=== PATIENT | female | born 1970 | race Asian ===

== ENCOUNTER → 2021-02-21 | Outpatient (CLI) | payer BC ==
[~2021-02-21] MED LIST: AMBEREN; NORCO 5-325 TA1 EACH PO; NORFLEX100 MG PO
--- NOTE | 2021-02-22 13:08 | PATH ---
[facility] [address] [address] PATHOLOGY RPT PROCEDURE Name: MANDA RODRIGUEZ Room #: REG [facility] M.R.#: [id number] Admission: 02/21/21 Date of : 72 Discharge: Report #: [id number] Path Case #: [id number] [facility] Accession Number: [id number] . 01 Material submitted: . breast - RIGHT BREAST MASS. Modifiers: right . 01 Clinical history: . RIGHT BREAST MASS - 10:00 5CM . 02 Diagnosis: Right breast mass at 10:00,ultrasound guided needle biopsies: -Breast with apocrine metaplasia, columnar cell hyperplasia,mild usual ductal hyperplasia mild duct ectasia , rare microcalcifications within ducts associated with fibrotic stroma. - Features favor fibrocystic changes. - Negative for atypia, in situ carcinoma or malignancy. . . This case has been co-reviewed with Dr. Ally Thornton who agrees with the above diagnosis on 02/22/2021. (AK/db; 02/22/2021) LBQ 02/22/2021 1217 Local . 02 Electronically signed: . Madelin Lacey MD, Pathologist NPI- [id number] . 01 Gross description: . The specimen is received in formalin, labeled "Manda Rodriguez, right breast 10:00 5 cm". Received are multiple needle cores of fibrofatty tissue measuring 3.8 x 2.7 x 0.8 cm in aggregate dimensions. The specimen is submitted entirely in cassettes A1 through A3. The cold ischemic time is 5 minutes. The total formalin fixation time is 10 hours and 35 minutes. ([facility]; 02/21/2021) QAC/QAC 02/21/2021 1519 Local . 02 Pathologist provided ICD-10: N60.41, N60.81 . 02 CPT . 566580 Specimen Comment: A courtesy copy of this report has been sent to [phone] Specimen Comment: [id number] [address] PATHOLOGY RPT PROCEDURE Name: MANDA RODRIGUEZ Room #: REG [facility] Jha#: [id number] Admission: 02/21/21 Date of : 72 Discharge: Report #: [id number] Path Case #: [id number] Specimen Comment: Report sent to / DR LACEY Performed at: 01 [facility] [address], [place], [place] [id number] MD Yogesh Bloom MD Phone: [phone] Performed at: [address] [facility] [id number] MD Ally Thornton MD Phone: [phone]
== END ==
LOC: ULTRA 10:13 → PRE 14:15 → EDSTATUS 14:16 → ULTRA 14:56
DX: N60.41 Mammary duct ectasia of right breast (principal); N60.81 Other benign mammary dysplasias of right breast; R92.1 Mammographic calcification found on diagnostic imaging of breast